=== PATIENT | male | born 1940 | race Caucasian/White ===

== ENCOUNTER 2023-07-16 12:04 | Emergency (ER) | payer MEDICARE, BC, SELFPAY ==
[2023-07-16 12:06] VITALS: BP 141/69
--- NOTE | 2023-07-16 13:32 | ED.MUSCINJ ---
HPI-Injury
General
Chief Complaint: Musculo-Skeletal Complaint
Source: patient
Exam Limitations: none
Time Seen by Provider: 07/16/23 13:15
Nursing documentation reviewed up to this point in time: agreed with
Travel History
Have you had any contact with someone who has COVID-19?: No
Do you have any symptoms of coronavirus? Fever > 100 degrees, chills, cough, shortness of breath, sore throat, loss of taste or smell, muscle aches, or headache?: No
History of Present Illness-Injury
Is this injury a work related problem?: No
Is pt an associate of [facility]?: No
Initial Injury comments:
Patient to ED with complaint of right knee and ankle pain. No history of trauma. reports he has had pain for a while. Denies fever/chills, recent illness. Denies redness or swelling to joints. No other complaints.
Past History
Past History
ED Past Medical History: Arrthythmia (Atrial fibrillation), Cancer and HTN; Negative IDDM or NIDDM
ED Past Surgical History: Cardiac, Orthopedic and Other (Hernia repair)
Patient has exhibited threatening behavior?: No
PSI?: No
Social History
Tobacco: Former smoker (Cigars)
Alcohol: Occasional
Drug: None
Personal:
Living: with family
Employment: Retired
Family History
Family History: Other (Noncontributory)
Review of Systems
Review of Systems
Allergies reviewed?: Yes
All Other Systems: ROS reviewed and negative except as documented in HPI and ROS
Constitutional: Reports no symptoms
EENT: Reports no symptoms
Respiratory: Reports no symptoms
Cardiac: Reports no symptoms
ABD/GI: Reports no symptoms
Musculoskeletal: Reports joint pain (right knee and ankle pain)
Skin: Reports no symptoms
Neurological: Reports no symptoms
Psychiatric: Reports no symptoms
Musculoskeletal Injury Exam
Musculoskeletal Injury Exam
Right Knee:
Pain with Movement?: Moderate
Tender to palpation?: Moderate
Soft tissue swelling?: None
External deformity and angulation?: None
Joint effusion?: None
Contusion?: None
Hematoma-local bleeding into tissue?: None
Strain- Sprain- Tear (Connective tissue injury)?: None
Crepitus with movement?: No
Joint instability?: No
Malalignment/deformity?: No
Range of motion: Full
Distal skin color and temperature: normal-warm & good color
Capillary Refill: normal
Normal distal neurovascular exam?: Yes
Peripheral Pulses: posterior tibial (left): 3+, posterior tibial (right): 3+, dorsalis pedis (left): 3+ and dorsalis pedis (right): 3+
Right Lateral Ankle:
Pain with Movement?: Moderate
Tender to palpation?: Moderate
Soft tissue swelling?: None
External deformity and angulation?: None
Joint effusion?: None
Contusion?: None
Hematoma-local bleeding into tissue?: None
Strain- Sprain- Tear (Connective tissue injury)?: None
Crepitus with movement?: No
Joint instability?: No
Malalignment/deformity?: No
Range of motion: Full
Distal skin color and temperature: normal-warm & good color
Capillary Refill: normal
Normal distal neurovascular exam?: Yes
Phy Exam
General Physical Exam
General Presentation: well appearing and no apparent distress
General age: appears stated age
General Skin: warm and dry
General Habitus: normal
General Mental: alert
Musculoskeletal Exam
Musculoskeletal Exam: full ROM and neuro vasc intact
Skin Exam
Skin Exam: normal color, warm/dry and no rash
Psychiatric Exam
Psychiatric Exam: normal mood/affect
Injury Course
Orders/Labs/Results
Orders:
Orders
07/16/23 12:11
CR Ankle - Right Min 3 Views * Urgent
Comment:
Reason For Exam: pain
CR Knee- Right 4 Or More View* Urgent
Comment:
Reason For Exam: pain
*Radiology
Radiology exam reviewed: radiology read reviewed
*Pulse Oximetry
Patient hypoxic: no
*Critical Care Note
Total Time (30-74mins, 75-104mins- exclusive of procedures): Not Applicable
ED Attending Note
-
Portions of this chart may have been created with voice recognition software.� Occasional wrong word or��sound alike� substitutions may have occurred due to the inherent limitations of voice recognition software.
Discharge Plan
Departure
Patient Disposition: Home (Routine Discharge)
Date of Disposition: 07/16/23
Time of Disposition: 13:30
Patient with high blood pressure during this ER visit?: No
Condition: Good
Covid-19: Not Applicable
Discharge Problem:
Knee pain, Ankle pain
Instructions: Osteoarthritis (DC), Ibuprofen
Prescriptions:
No Action
furosemide 20 MG tablet
20 mg PO Q48H
metoprolol tartrate 50 MG tablet
50 mg PO DAILY@299,999
capsaicin 0.025 % cream
1 applic topical MOWEFR
Rx Instructions:
Apply to affected area
Xarelto 20 mg Tablet
20 mg PO DAILY@1000
omega 3-nsl-fie-fish oil [Fish Oil] 1,200 (144-216) mg Capsule
1 cap PO DAILY@0300
dofetilide 250 MCG capsule
250 mcg PO DAILY@0300,1000
aspirin 81 mg tablet,chewable
81 mg PO .TWICEWEEKLY
clopidogrel [Plavix] 75 mg tablet
75 mg PO DAILY Qty: 30 1RF
Referrals:
Tessa Walker, DO [Family Provider] -
Jw Roger MD [Active] - Next open appointment
Interventions
Interventions:
*Risk Screen - Suicide Last Done: 07/16/23 12:06
*Neglect/Abuse Screening Last Done: 07/16/23 12:06
*ED COVID-19 Vaccine History Last Done: 07/16/23 12:06
ED-Musculoskeletal Assessment Last Done: 07/16/23 12:39
== END 2023-07-16 13:45 | disposition home or self-care (01) ==
LOC: EMR 12:04
PROVIDERS: EMERGENCY PHYSICIAN Emergency Medicine; FAMILY PHYSICIAN Family Medicine
DX: M25.561 Pain in right knee (principal); M25.571 Pain in right ankle and joints of right foot; M19.071 Primary osteoarthritis, right ankle and foot; Z87.891 Personal history of nicotine dependence
CPT/HCPCS: 99283; 73564; 73610

== ENCOUNTER 2023-12-17 09:50 | Emergency (ER) | payer MEDICARE, BC, SELFPAY ==
[2023-12-17 09:53] VITALS: BP 141/79
--- NOTE | 2023-12-17 10:08 | ED.GENMED ---
History of Present Illness
General
Chief Complaint: Musculo-Skeletal Complaint
Source: patient and spouse
Exam Limitations: none
Time Seen by Provider: 12/17/23 09:59
Nursing documentation reviewed up to this point in time: agreed with
History of Present Illness
History of Present Illness:
83-year-old male past medical history of A-fib status post Watchman procedure not currently anticoagulated, presenting to the emergency department today with concerns of right-sided posterior neck discomfort over the past 3 days seem to wake up with
this 3 days ago. Denies any numbness weakness headache nausea vomiting chest pain or shortness of breath. Significant increased discomfort with range of motion mainly when turning his head to the right
Past History
Past History
ED Past Medical History: Arrthythmia (Atrial fibrillation), Cancer and HTN; Negative IDDM or NIDDM
ED Past Surgical History: Cardiac, Orthopedic and Other (Hernia repair)
Patient has exhibited threatening behavior?: No
PSI?: No
Social History
Tobacco: Former smoker (Cigars)
Alcohol: Occasional
Drug: None
Personal:
Living: with family
Employment: Retired
Family History
Family History: Other (Noncontributory)
Review of Systems
Review of Systems
Allergies reviewed?: Yes
All Other Systems: ROS reviewed and negative except as documented in HPI and ROS
Phy Exam
Physical Exam
Physical Exam:
GENERAL: Alert , in no apparent distress
EYE: pupils equal and reactive
NECK: Discomfort to the posterior trapezius in the cervical region significant increased discomfort with patient attempting to rotate his head to the right. Supple, no significant adenopathy.
ENT: o/p clr, mmm.
CARDIAC: Regular rate and rhythm .
LUNGS: Clear breath sounds bilaterally, no acute respiratory distress, no wheezes/rales/rhonchi
ABDOMEN: Soft, without focal tenderness, no r/g, no cvat
NEUROLOGICAL: Alert and oriented, no focal neuro deficits normal 5 out of 5 upper extremity strength normal sensation with palpating bilaterally normal finger-nose. Walking steady gait. With assistance of cane
SKIN: Warm and dry, skin intact.
MUSCULOSKELETAL: No edema, well perfused.
PSYCH: Normal and appropriate interaction.
Course
Orders/Labs/Results
Orders:
Orders
12/17/23 10:05
Acetaminophen [Tylenol] 650 mg PO NOW STA
Ketorolac [Toradol] 30 mg IM NOW STA
CR Cervical Spine 2 or 3 Vw Urgent
Comment:
Reason For Exam: neck pain,
Vital Signs
Initial and Last Documented VS:
Initial Vital Signs
Temp Pulse Resp BP Pulse Ox
98.9 F 69 18 141/79 96
12/17/23 09:53 12/17/23 09:53 12/17/23 09:53 12/17/23 09:53 12/17/23 09:53
Last Documented Vital Signs
Temp Pulse Resp BP Pulse Ox
98.9 F 69 18 141/79 96
12/17/23 09:53 12/17/23 09:53 12/17/23 09:53 12/17/23 09:53 12/17/23 09:53
MDM/Problems Addressed
MDM/Problems Addressed:
83-year-old male presenting to the emergency department today with concerns of right-sided posterior neck discomfort. Pain worse with movement. No additional associated symptoms no neurologic symptoms chest pain shortness of breath headache. Here
patient with normal neurologic evaluation of the upper extremities and HEENT exam. Reproducible with movement and palpation making muscular injury most likely. X-ray with arthritis but no emergent findings. Otherwise patient appear stable for
discharge and return precautions given.
*Critical Care Note
Total Time (30-74mins, 75-104mins- exclusive of procedures): Not Applicable
ED Attending Note
-
Portions of this chart may have been created with voice recognition software.� Occasional wrong word or��sound alike� substitutions may have occurred due to the inherent limitations of voice recognition software.
Discharge Plan
Departure
Patient Disposition: Home (Routine Discharge)
Date of Disposition: 12/17/23
Time of Disposition: 11:39
Patient with high blood pressure during this ER visit?: No
Condition: Good
Covid-19: Not Applicable
Discharge Problem:
Neck muscle strain
Instructions: Muscle Strain (DC)
Prescriptions:
New
meloxicam 15 mg tablet
15 mg PO DAILY 5 Days Qty: 5 0RF
No Action
furosemide 20 MG tablet
20 mg PO Q48H
metoprolol tartrate 50 MG tablet
50 mg PO DAILY@0300,1000
capsaicin 0.025 % cream
1 applic topical MOWEFR
Rx Instructions:
Apply to affected area
Xarelto 20 mg Tablet
20 mg PO DAILY@1000
omega 1-fwb-nnr-fish oil [Fish Oil] 1,200 (144-216) mg Capsule
1 cap PO DAILY@0300
dofetilide 250 MCG capsule
250 mcg PO DAILY@0300,1000
aspirin 81 mg tablet,chewable
81 mg PO .TWICEWEEKLY
clopidogrel [Plavix] 75 mg tablet
75 mg PO DAILY Qty: 30 1RF
Referrals:
Tessa Walker DO [Family Provider] -
Activity Restrictions/Additional Instructions:
You came to the emergency department today with concerns of neck discomfort. This is most likely a muscle strain. Please rest and otherwise symptoms should hopefully improve over the next few days. Return to the emergency department for any
worsening, new or concerning symptoms.
Interventions
Interventions:
*Risk Screen - Suicide Last Done: 12/17/23 09:53
*General Assessment Last Done: 12/17/23 09:53
*Neglect/Abuse Screening Last Done: 12/17/23 09:53
ED-Musculoskeletal Assessment Last Done: 12/17/23 10:32
Discharge Date and Time
Print Language: HAITIAN
[2023-12-17] MEDS: TYLENOL 650 MG PO (10:32)
[2023-12-17] MEDS: TORADOL 30 MG IM (10:32)
== END 2023-12-17 11:47 | disposition home or self-care (01) ==
LOC: EMR 09:50
PROVIDERS: EMERGENCY PHYSICIAN Student in an Organized Health Care Education/Training Program; FAMILY PHYSICIAN Family Medicine
DX: S16.1XXA Strain of muscle, fascia and tendon at neck level, initial encounter (principal); X58.XXXA Exposure to other specified factors, initial encounter; I48.91 Unspecified atrial fibrillation; Z87.891 Personal history of nicotine dependence
CPT/HCPCS: 99284; 96372; 72040

== ENCOUNTER 2024-06-23 13:47 | Emergency (ER) | payer MEDICARE, SELFPAY ==
[2024-06-23] VITALS (25 sets, daily range): BP systolic 76–121; BP diastolic 49–75; BMI 30.2
[2024-06-23 14:21] LABS: % Basophils 0.1 % (0-2); % Eosinophils 0.7 % (0-6); % Immature Granulocytes 0.4 % (0-0.5); % Lymphocytes 3.1 % (20.5-51.1); % Monocytes 6.8 % (1.7-9.3); % Neutrophils 88.9 % (42.2-75.2); Absolute Eosinophils 0.1 10^3/uL (0-0.7); Absolute Lymphocytes 0.3 10^3/uL (1.2-3.4); Absolute Monocytes 0.6 10^3/uL (0.1-0.6); Absolute Neutrophils 7.4 10^3/uL (1.4-6.5); Hematocrit 48.2 % (39.0-52.0); Hemoglobin 15.7 g/dL (13.0-18.0); Mean Corp Hgb Conc. 32.6 g/dL (33.0-37.0); Mean Corpuscular Hgb 31.7 pg (27.0-31.0); Mean Corpuscular Volume 97.2 fL (80.0-94.0); Mean Platelet Volume 9.8 fL (7.4-10.4); Nucleated Red Blood Cells % 0 % (-); Platelet Count 245 10^3/uL (130-400); Red Blood Cell Count 4.96 10^6/uL (4.70-6.10); Red Cell Dist. Width 13.9 % (11.5-14.5); White Blood Cell Count 8.3 10^3/uL (4.8-10.8)
[2024-06-23 14:28] LABS: ALT (SGPT) 16 U/L (0-50); AST (SGOT) 21 U/L (17-59); Albumin 3.9 g/dl (3.5-5.0); Alkaline Phosphatase 54 U/L (38-126); Blood Urea Nitrogen 17 mg/dl (9-20); Calcium 8.6 mg/dl (8.4-10.2); Carbon Dioxide 27 mmol/L (22-30); Chloride 101 mmol/L (98-107); Glucose 104 mg/dl (70-99); Sodium 136 mmol/L (135-145); Total Bilirubin 0.7 mg/dl (0.2-1.3); Total Protein 6.7 g/dl (6.3-8.2); eGFR > 60.00
[2024-06-23 14:38] LABS: Troponin I 0.032 ng/ml
--- NOTE | 2024-06-23 16:06 | ED.GENMED ---
History of Present Illness
<Mela Cobb FLASK MAKER - Last Filed: 06/26/24 17:14>
General
Chief Complaint: Breathing Problem
Source: patient
Exam Limitations: none
Time Seen by Provider: 06/23/24 15:57
Nursing documentation reviewed up to this point in time: agreed with
History of Present Illness
History of Present Illness:
84-year-old male with history of A-fib on aspirin post Watchman procedure 01/2023, HTN presents for 2 days of feeling fatigued, having heart palpitations and dyspnea on exertion. He denies chest pain. He denies abdominal pain.
Past History
<Mela Cobb, FLASK MAKER - Last Filed: 06/26/24 17:14>
Past History
ED Past Medical History: Arrthythmia (Atrial fibrillation), Cancer and HTN; Negative IDDM or NIDDM
ED Past Surgical History: Cardiac, Orthopedic and Other (Hernia repair)
Patient has exhibited threatening behavior?: No
PSI?: No
Social History
Tobacco: Former smoker (Cigars)
Alcohol: Occasional
Drug: None
Personal:
Living: with family
Employment: Retired
Family History
Family History: Other (Noncontributory)
Review of Systems
<Mela Cobb, FLASK MAKER - Last Filed: 06/26/24 17:14>
Review of Systems
Allergies reviewed?: Yes
All Other Systems: ROS reviewed and negative except as documented in HPI and ROS
Constitutional: Reports fatigue; Denies fever
EENT: Denies sore throat
Respiratory: Reports trouble breathing (THOMAS past 2 days); Denies cough
Cardiac: Reports palpitations; Denies chest pain, diaphoresis or syncope
ABD/GI: Denies abdominal pain, nausea, vomiting or diarrhea
: Denies dysuria or difficulty voiding
Musculoskeletal: Reports no symptoms
Skin: Reports no symptoms
Neurological: Reports no symptoms
Phy Exam
<Mela Cobb, FLASK MAKER - Last Filed: 06/26/24 17:14>
Physical Exam
Physical Exam:
GENERAL: No acute distress. A&Ox3.
CONSTITUTIONAL: Afebrile.
EYES: clear, conjunctivae normal
ENMT: moist mucus membranes, Pharynx nl
RESPIRATORY: Regular respirations, nonlabored, lungs clear.
CARDIOVASCULAR: Tachycardic, monitor showing 160's-170's. Afib w RVR.
GI: Soft, nontender, normal BS
MUSCULOSKELETAL: Moves with ease. Well perfused. No edema
SKIN: Warm, dry, pink
PSYCH: Normal mood and affect. Well kept, interactive and appropriate
NEUROLOGIC: Awake, alert and oriented. No focal neurological deficits
Scores
<Mela Cobb, FLASK MAKER - Last Filed: 06/26/24 17:14>
Heart Failure Risk
Heart Failure Risk Score: Not Applicable
Course
<Mela Robertson. Jordyn, FLASK [employer]KER - Last Filed: 06/26/24 17:14>
Orders/Labs/Results
Orders:
Orders
06/23/24 13:52
Electrocardiogram (*1) Urgent
Reason for Study: Shortness of Breath
EKG- Treatment ONCE
06/23/24 14:06
Complete Blood Count/With Diff Urgent
Comprehensive Metabolic Panel Urgent
Troponin I Urgent
06/23/24 16:17
COVID-19 Antigen Urgent
Source: Nasal Swab
Influenza A+B Rapid Molecular Urgent
DANETTE Source: Nasal Swab
Specimen Description:
06/23/24 16:29
Propofol [Diprivan] 20 ml .ROUTE .STK-MED
06/23/24 17:05
Electrocardiogram (*1) Urgent
Reason for Study: Atrial Fibrillation
06/23/24 17:06
EKG- Treatment ONCE
06/23/24 17:40
CR Chest Portable - 1 View Urgent
Comment:
Reason For Exam: Afib w RVr
Reason Study Needs to be Portable: Patient Unstable
Abnormal Lab Results
06/23/24
14:06
MCV 97.2 H fL
(80.0-94.0)
MCH 31.7 H pg
(27.0-31.0)
MCHC 32.6 L g/dL
(33.0-37.0)
Absolute Neuts (auto) 7.4 H 10^3/uL
(1.4-6.5)
Absolute Lymphs (auto) 0.3 L 10^3/uL
(1.2-3.4)
Neutrophils % 88.9 H %
(42.2-75.2)
Lymphocytes % 3.1 L %
(20.5-51.1)
Glucose 104 H mg/dl
(70-99)
06/23/24 14:06
06/23/24 14:06
Vital Signs
Initial and Last Documented VS:
Initial Vital Signs
Temp Pulse Resp BP Pulse Ox
98.4 F 67 16 121/75 96
06/23/24 13:52 06/23/24 13:52 06/23/24 13:52 06/23/24 13:52 06/23/24 13:52
Last Documented Vital Signs
Temp Pulse Resp BP Pulse Ox
100.1 F 88 20 86/53 94
06/23/24 19:53 06/23/24 19:53 06/23/24 19:53 06/23/24 19:53 06/23/24 19:53
<Tejas Downs MD - Last Filed: 06/23/24 17:14>
Orders/Labs/Results
Orders:
Orders
06/23/24 13:52
Electrocardiogram (*1) Urgent
Reason for Study: Shortness of Breath
EKG- Treatment ONCE
06/23/24 14:06
Complete Blood Count/With Diff Urgent
Comprehensive Metabolic Panel Urgent
Troponin I Urgent
06/23/24 16:17
COVID-19 Antigen Urgent
Source: Nasal Swab
Influenza A+B Rapid Molecular Urgent
DANETTE Source: Nasal Swab
Specimen Description:
06/23/24 16:29
Propofol [Diprivan] 20 ml .ROUTE .STK-MED
06/23/24 17:05
Electrocardiogram (*1) Urgent
Reason for Study: Atrial Fibrillation
06/23/24 17:06
EKG- Treatment ONCE
06/23/24 17:40
CR Chest Portable - 1 View Urgent
Comment:
Reason For Exam: Afib w RVr
Reason Study Needs to be Portable: Patient Unstable
Abnormal Lab Results
06/23/24
14:06
MCV 97.2 H fL
(80.0-94.0)
MCH 31.7 H pg
(27.0-31.0)
MCHC 32.6 L g/dL
(33.0-37.0)
Absolute Neuts (auto) 7.4 H 10^3/uL
(1.4-6.5)
Absolute Lymphs (auto) 0.3 L 10^3/uL
(1.2-3.4)
Neutrophils % 88.9 H %
(42.2-75.2)
Lymphocytes % 3.1 L %
(20.5-51.1)
Glucose 104 H mg/dl
(70-99)
06/23/24 14:06
06/23/24 14:06
Vital Signs
Initial and Last Documented VS:
Initial Vital Signs
Temp Pulse Resp BP Pulse Ox
98.4 F 67 16 121/75 96
06/23/24 13:52 06/23/24 13:52 06/23/24 13:52 06/23/24 13:52 06/23/24 13:52
Last Documented Vital Signs
Temp Pulse Resp BP Pulse Ox
100.1 F 88 20 86/53 94
06/23/24 19:53 06/23/24 19:53 06/23/24 19:53 06/23/24 19:53 06/23/24 19:53
Procedures
<Tejas Downs MD - Last Filed: 06/23/24 17:14>
Cardioversion
Indication:: Afib
Performed by:: Tejas Downs MD; ALBERTA Armas
Synchronized?: Yes
Energy Used: 200 joules
Number of attempts: 1
Successful?: Yes
ASA Risk Score: Class III
Any reaction or bad outcome to prior sedation/anesthesia?: No history of a reaction
Sedation level to be attained: moderate
Chart and allergies reviewed: Yes
Patient reassessed prior to sedation: Yes
Time out completed at (validating right patient & procedure): 17:05
History of difficult intubation: No
Airway free of obstruction: Yes
Patient has a gag reflex: Yes
Patient is able to open mouth: Yes
Patient has no dentures: Yes
Patient has no loose teeth: Yes
Medication administered by Provider during Moderate Sedation: IV Propofol (mg)
Total dose administered: 40
Time drug administered: 17:05
Start Time: 17:05
Stop Time: 17:15
<Mela Cobb NP - Last Filed: 06/26/24 17:14>
MDM/Problems Addressed
Differential Diagnosis Includes:
Afbi w RVR
MDM/Problems Addressed:
84-year-old male with history of A-fib on aspirin post Watchman procedure 01/2023, HTN presents for 2 days of feeling fatigued, having heart palpitations and dyspnea on exertion. He denies chest pain. He denies abdominal pain.
Afebrile, NAD, heart rate 68 on arrival and went up to the 140s to 170s a past 10 minutes
4:05 p.m.
BP systolic in the 80s, patient alert, pleasant, NAD, he states he can feel the palpitations. HR 170's
Case discussed with Dr. Downs who will assist with cardioversion
CBC with no clinically significant abnormality
CMP normal
Troponin 0.032
Pt has Watchman, is on ASA [address] Mariano pupil personnel worker Inside Account Representative for [facility] re: cardioverting. He consulted Dr. Lynn and gave the go ahead for Cardioversion
6:00 p.m.
Pt alert, drinking. Monitor remains NSR
CXR: NAD
7:00 p.m.
Pt alert, NSR, drinking, stable for discharge
Chronic conditions affecting care: HTN and Arrhythmia
<Mela Cobb FL[employer]KER - Last Filed: 06/26/24 17:14>
*Critical Care Note
Total Time (30-74mins, 75-104mins- exclusive of procedures): Not Applicable
ED Attending Note
<Mela Cobb FL[employer]ER - Last Filed: 06/26/24 17:14>
-
Portions of this chart may have been created with voice recognition software.� Occasional wrong word or��sound alike� substitutions may have occurred due to the inherent limitations of voice recognition software.
<Tejas Downs MD - Last Filed: 06/23/24 17:14>
ED Attending Note
Patient seen and examined by attending physician: Yes
ED Attending Note:
I have seen and evaluated the patient with a [id number] encounter. I have spoken to the advance practicer provider and involved in the medical history, the physical exam, medical decision making.
Evaluation and management service: agree unless noted differently below.
Results interpretation: agree unless noted differently below.
Focused HPI: 84-year-old male with a past medical history as noted significant for A-fib status post Watchman procedure who presents to the ER with his for evaluation of palpitations, fatigue and shortness of breath. He says that he has had
intermittent symptoms for about a month but symptoms became more severe yesterday. He reports he feels very tired and wiped out especially when he exerts himself. He reports he has had palpitations. He had similar symptoms with A-fib in the past.
He sees Dr. Lacey for cardiology.
Physical exam: Awake alert no distress. Soft blood pressure 90s over 60s, tachycardic in the 150s irregularly irregular rhythm. Lungs sound clear to auscultation. No edema in the legs. Normal respiratory rate and pulse ox on room air.
Medical Decision Makin-year-old male presents for evaluation of tachycardia, palpitations, fatigue and shortness of breath. On arrival he was found to be in atrial fibrillation with rapid ventricular response. He has no signs of overt heart
failure. Labs sent off showed no anemia, CMP unremarkable. Troponin negative. He denies any chest pain. Case discussed with cardiology although he is not anticoagulation he has had Watchman procedure, okay with ED cardioversion. Discussed with
patient and he is agreeable to this procedure. He was cardioverted as documented in procedure note. Will continue to monitor here.
Discharge Plan
Departure
Patient Disposition: Home (Routine Discharge)
Date of Disposition: 06/23/24
Time of Disposition: 19:06
Patient with high blood pressure during this ER visit?: No
Condition: Good
Discharge Problem:
Atrial fibrillation with rapid ventricular response
Instructions: Atrial fibrillation - Discharge instructions, MODERATE SEDATION ADULT
Prescriptions:
No Action
furosemide 20 MG tablet
20 mg PO Q48H
metoprolol tartrate 50 MG tablet
50 mg PO DAILY@0300,1000
capsaicin 0.025 % cream
1 applic topical MOWEFR
Rx Instructions:
Apply to affected area
Xarelto 20 mg Tablet
20 mg PO DAILY@1000
omega 2-nby-ijg-fish oil [Fish Oil] 1,200 (144-216) mg Capsule
1 cap PO DAILY@0300
dofetilide 250 MCG capsule
250 mcg PO DAILY@0300,1000
aspirin 81 mg tablet,chewable
81 mg PO .TWICEWEEKLY
clopidogrel [Plavix] 75 mg tablet
75 mg PO DAILY Qty: 30 1RF
meloxicam 15 mg tablet
15 mg PO DAILY 5 Days Qty: 5 0RF
Referrals:
Frederick Lynn DO [Active] -
Jose Luis Lacey MD [Active] - Call in 1-3 days for appt
UNKNOWN - PT NOT,INTERVIEWE [Family Provider] -
Activity Restrictions/Additional Instructions:
As we discussed, call your Inside Account Representative on Wednesday and see when they want to see you for follow up.
Return here over the weekend if symptoms return or any thing concerns you.
Continue your current medications
Interventions
Interventions:
*Risk Screen - Suicide Last Done: 06/23/24 13:52
*General Assessment Last Done: 06/23/24 15:50
*Neglect/Abuse Screening Last Done: 06/23/24 13:52
ED- Fall Risk Assessment Last Done: 06/23/24 16:11
*ED COVID-19 Vaccine History Last Done: 06/23/24 16:12
*Nursing Disposition Last Done: 06/23/24 19:53
ED- Cardiac Assessment Last Done: 06/23/24 19:00
ED- Pulmonary Assessment Last Done: 06/23/24 18:59
Discharge Date and Time
Discharge Date/Time: 06/23/24 19:54
Print Language: EMIRATI
[2024-06-23 16:46] LABS: COVID-19 Antigen Negative (Negative)
== END 2024-06-23 19:54 | disposition home or self-care (01) ==
LOC: EMR 13:47
PROVIDERS: Registered Nurse; EMERGENCY PHYSICIAN Emergency Medicine
DX: R00.2 Palpitations (principal); I10 Essential (primary) hypertension; I48.91 Unspecified atrial fibrillation; Z87.891 Personal history of nicotine dependence
CPT/HCPCS: 92960; 99285; 99152; 71045; 80053; 84484; 85025; 87502; 87811; 93005

== ENCOUNTER 2024-06-28 14:09 | Inpatient (IN) | payer MEDICARE, SELFPAY ==
[2024-06-28] VITALS (15 sets, daily range): BP systolic 92–125; BP diastolic 58–85; BMI 30.8; BMI 29.6
[2024-06-28 10:35] LABS: % Basophils 0.3 % (0-2); % Eosinophils 1.4 % (0-6); % Immature Granulocytes 0.4 % (0-0.5); % Lymphocytes 23.1 % (20.5-51.1); % Monocytes 12.2 % (1.7-9.3); % Neutrophils 62.6 % (42.2-75.2); Absolute Eosinophils 0.1 10^3/uL (0-0.7); Absolute Lymphocytes 1.6 10^3/uL (1.2-3.4); Absolute Monocytes 0.9 10^3/uL (0.1-0.6); Absolute Neutrophils 4.3 10^3/uL (1.4-6.5); Hematocrit 45.8 % (39.0-52.0); Hemoglobin 15.3 g/dL (13.0-18.0); Mean Corp Hgb Conc. 33.4 g/dL (33.0-37.0); Mean Corpuscular Hgb 32.2 pg (27.0-31.0); Mean Corpuscular Volume 96.4 fL (80.0-94.0); Nucleated Red Blood Cells % 0 % (-); Platelet Count 255 10^3/uL (130-400); Red Blood Cell Count 4.75 10^6/uL (4.70-6.10); Red Cell Dist. Width 13.5 % (11.5-14.5); White Blood Cell Count 6.9 10^3/uL (4.8-10.8)
[2024-06-28 10:47] LABS: ALT (SGPT) 22 U/L (0-50); AST (SGOT) 23 U/L (17-59); Albumin 3.9 g/dl (3.5-5.0); Alkaline Phosphatase 52 U/L (38-126); Blood Urea Nitrogen 13 mg/dl (9-20); Calcium 9.2 mg/dl (8.4-10.2); Carbon Dioxide 27 mmol/L (22-30); Chloride 102 mmol/L (98-107); Estimated Creatinine Clearance 73 ml/min; Glucose 92 mg/dl (70-99); Sodium 137 mmol/L (135-145); Total Bilirubin 0.6 mg/dl (0.2-1.3); Total Protein 6.5 g/dl (6.3-8.2); eGFR > 60.00
--- NOTE | 2024-06-28 11:39 | ED.GENMED ---
History of Present Illness
General
Chief Complaint: Heart Rate Problem
Source: patient
Time Seen by Provider: 06/28/24 11:23
History of Present Illness
History of Present Illness:
84-year-old male presents to the emergency room complaining of rapid heart rate. He has a history of atrial fibrillation for which she has had multiple cardioversions, been on several medications and had a Watchman procedure. He was cleared to
stop anticoagulation after the Watchman procedure. Patient was seen here in the emergency room for similar symptoms about a week ago at which point he had a cardioversion. Unfortunately he is shortly reverted back to A-fib. Patient feels a bit
more short of breath when he is in A-fib but denies any chest pain.
Past History
Past History
ED Past Medical History: Arrthythmia (Atrial fibrillation), Cancer and HTN; Negative IDDM or NIDDM
ED Past Surgical History: Cardiac, Orthopedic and Other (Hernia repair)
Patient has exhibited threatening behavior?: No
PSI?: No
Social History
Tobacco: Former smoker (Cigars)
Alcohol: Occasional
Drug: None
Personal:
Living: with family
Employment: Retired
Family History
Family History: Other (Noncontributory)
Phy Exam
Physical Exam
Physical Exam:
General: Awake, Alert, Oriented X3. No acute distress.
Vitals: Tachycardic
Head: Atraumatic
Eyes: Pupils equal, EOMI
Throat: Airway intact, no exudates
Neck: Trachea midline
Lungs: Clear and equal b/l
Heart: Tachycardic, irregular rate, no murmurs
Abd: Soft, Nontender, No pulsatile mass
Neuro: Nonfocal
Skin: Warm, dry, no rash
Extremities: pulses equal b/l, 1+ edema
Course
Orders/Labs/Results
Orders:
Orders
06/28/24 10:01
Electrocardiogram (*1) Urgent
Reason for Study: Atrial Fibrillation
EKG- Treatment ONCE
06/28/24 10:11
Complete Blood Count/With Diff Urgent
Comprehensive Metabolic Panel Urgent
06/28/24 11:38
Diltiazem 125 mg/125 ml Nss [Cardizem] 125 mg in 125 ml IV NOW
Initial dose in mg/hr, then titrate:: 5
Titrate to keep:: Heart rate 80-100 bpm
Titrate by mg/hr:: 5 mg/hr
Frequency of titrations (minutes):: 15
Maximum dose in mg/hr:: 15
Diltiazem HCl [Cardizem] 20 mg IV NOW STA
06/28/24 12:40
Admit/Transfer Patient As Directed
Co-Sign Provider:
Level of Care: Inpatient admission
Assign to:: Telemetry
Physician / Group: gunjan
Diagnosis: afib rvr
Reason for Telemetry: Arrhythmia
Date to Stop Telemetry: 07/01/24
Time to Stop Telemetry: 11:00
Reason for Hospitalization: shortness of breath
Expected length of stay greater than two midnights?: Yes
ELOS- Estimated Length of Stay in days: 2
I certify the patient meets the requirements for IP care: Yes
PRN Pain Medication Management As Directed
May give lesser potent ordered pain med per pt: Yes
preference::
Protocol:: Medication orders for pain may be administered in a
manner that supports deferring to patient preference
when the pt is:
- Requesting an ordered lesser potent pain medication.
Least to most potent pain medications are defined
as: acetaminophen < NSAID < tramadol < opioids
(morphine, oxycodone, hydromorphone).
- Requesting a lesser dose of the same medication IF
ORDERED.
- Requesting a less intrusive route of administration
if both routes are prescribed by the provider (PO <
IV).
06/28/24 12:41
Code Status As Directed
Resuscitation Status: Full Code
07/01/24 11:00
DC Protocol for Telemetry ONCE
Abnormal Lab Results
06/28/24
10:11
MCV 96.4 H fL
(80.0-94.0)
MCH 32.2 H pg
(27.0-31.0)
Absolute Monos (auto) 0.9 H 10^3/uL
(0.1-0.6)
Monocytes % 12.2 H %
(1.7-9.3)
06/28/24 10:11
06/28/24 10:11
Vital Signs
Initial and Last Documented VS:
Initial Vital Signs
Temp Pulse Resp BP Pulse Ox
98.4 F 108 18 111/81 99
06/28/24 09:58 06/28/24 09:58 06/28/24 09:58 06/28/24 09:58 06/28/24 09:58
Last Documented Vital Signs
Temp Pulse Resp BP Pulse Ox
98.4 F 71 20 117/75 95
06/28/24 09:58 06/28/24 15:00 06/28/24 15:00 06/28/24 15:00 06/28/24 15:00
MDM/Problems Addressed
Differential Diagnosis Includes:
Atrial fibrillation with RVR, a flutter with RVR, SVT, anemia
MDM/Problems Addressed:
Patient presents with tachycardia. EKG shows a flutter with a rapid ventricular response. Reviewed the patient's recent hospitalizations and ER visits show he had a cardioversion performed just about a week ago. He is obviously not maintaining
sinus rhythm for very long. He has had other cardioversions in the past as well as antiarrhythmic medications. Cardiology consultation obtained. Patient's rate was controlled with IV Cardizem. After cardiology evaluation the plan was to
hospitalize the patient for amiodarone loading.
Chronic conditions affecting care: HTN and Arrhythmia (Atrial fibrillation)
*Pulse Oximetry
Patient hypoxic: no
*EKG
Interpreted by ED Provider?: Yes
Heart Rate: 120
Rate: tachycardiac
Rhythm: atrial flutter
Ischemia: no ischemia
*Aeronautical Products Sales Engineer Interpretation
Rate: tachycardiac
Interpretation: abnormal
Heart Rate: 120
Rhythm: atrial flutter
*Critical Care Note
Total Time (30-74mins, 75-104mins- exclusive of procedures): Not Applicable
ED Attending Note
-
Portions of this chart may have been created with voice recognition software.� Occasional wrong word or��sound alike� substitutions may have occurred due to the inherent limitations of voice recognition software.
Discharge Plan
Departure
Patient Disposition: Admit
Date of Disposition: 06/28/24
Time of Disposition: 12:05
Admit to: Telemetry
Presentation/result/management discussed w/ accepting MD/DO: Hospitalist
Condition: Fair
Discharge Problem:
Atrial flutter with rapid ventricular response
Interventions
Interventions:
*Risk Screen - Suicide Last Done: 06/28/24 09:58
*General Assessment Last Done: 06/28/24 09:58
*Neglect/Abuse Screening Last Done: 06/28/24 09:58
ED- Fall Risk Assessment Last Done: 06/28/24 10:46
*ED COVID-19 Vaccine History Last Done: 06/28/24 10:46
*Nursing Disposition Last Done: 06/28/24 15:17
ED- Cardiac Assessment Last Done: 06/28/24 10:46
ED- Pulmonary Assessment Last Done: 06/28/24 10:46
[2024-06-28] MEDS: CARDIZEM 125 IV (11:45)
[2024-06-28] MEDS: CARDIZEM 20 MG IV (11:45)
--- NOTE | 2024-06-28 12:01 | CON.CAR ---
Addendum entered and electronically signed by Ranjith Lynn MD 06/28/24 13:06:
I saw and examined the patient.
The Blueprint Clerk's note was reviewed and I agree with the note.
Comment:
GEN: No distress, awake, Ox3
HEENT: supple, anicteric, mmm
LUNGS: CTA, no wheezes/rales
CV: Irreg, S1/S2, 1/6 syst LSB, no gallop
ABD: soft, BS+, NT/ND
EXT: No edema
NEURO: Gross non-focal
SKIN: No rash
plan:
Has a past medical history of paroxysmal atrial fibrillation/flutter, PVI in 2017 and atrial flutter ablation 2018, Watchman February 22, and left calf hematoma. His Tikosyn was stopped. On June 23, 2024 he was found to be in atrial fibs
requiring cardioversion. Several days later he started having more palpitations and feeling dyspneic on exertion was found to have A-fib with rapid ventricular rate upon arrival in the emergency room. He also had a Mohs procedure yesterday on his
left face.
Case discussed with electrophysiology. Plan will be to start amiodarone 400 mg p.o. 3 times daily and follow on telemetry for the next 24 hours.
Would wean Cardizem drip after amiodarone dosing x 2.
Continue aspirin alone with history of watchman and thigh hematoma.
Once Cardizem drip is off would restart oral metoprolol. Blood pressure is overall acceptable. Continue to follow.
No clear signs of volume overload.
Original Note:
Consultation
Consultation Request
Date/Time Consultation Performed: 06/28/24
Requesting Provider: Dr. Phillips
Performing Provider: Jaqui Potts PA-C for Dr. Lynn
Reason for Consultation: afib/aflutter
Medical History
-
Chief Complaint: elevated HR
History of Present Illness:
Rob has a history of atrial fibrillation and atypical atrial flutter status post PVI and separate aflutter ablation. He has history of L calf hematoma on xarelto 10/2022, ultimately resulting in Watchman placement 01/2023 and is maintained on asa
81mg daily. He then underwent structural drafter 04/2024 which showed sinus rhythm 55% of the time and the rest of the time in A-fib/a flutter with several runs of NSVT. His Lopressor dose was increased from 50 mg twice daily to 50 mg 3 times daily.
At some point after monitor in 04/2024 his tikosyn was stopped per patient. On 06/23/2024 he noted heart rate was elevated and came to ER for evaluation. He was cardioverted in the ER and discharged to home. His believes he went back into
A-fib either this past Wednesday or Wednesday. They came back to the ER today due to patient complaining of feeling out of breath and that his heart was pounding. On arrival in rapid A-fib. Cardiology consulted for evaluation. Of note he had Mohs
surgery yesterday and has a bandage on his face.
PMH:
Paroxysmal atrial fibrillation and atrial flutter
Status post PVI 2017
Status post a flutter ablation 2018
History of QT prolongation on Tikosyn
ER visit for rapid A-fib status post cardioversion 06/23/2024
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
Status post watchman placement 01/2023, not anticoagulated
HTN
Past Medical History
Past Medical History: Arrhythmias (Atrial fibrillation) and HTN
Past Surgical History: Other (Hernia repair, left hip replacement, trigger finger surgery, carpal tunnel surgery, cataracts, PVI ablation in 2018 and 2019, Mohs surgery, lumbar spine injections)
Social History
Tobacco: Non-Smoker
Alcohol: Occasional
Drug: None
Personal:
Living: With Family
Employment: Retired
Family History
Family History: Other (Mother of unknown heart complication, father )
Allergies / Home Medications
Allergy/AdvReac Type Severity Reaction Status Date / Time
No Known Allergies Allergy Verified 06/28/24 09:57
�Medication �Instructions �Recorded �Confirmed �Type
furosemide 20 mg tablet 20 mg PO Q48H Fluid 09/10/19 03/19/23 History
retention/Swelling
metoprolol tartrate 50 mg tablet 50 mg PO DAILY@0300,1000 Heart 03/31/21 03/19/23 History
disease/condition
capsaicin 0.025 % topical cream 1 applic topical MOWEFR Skin Issues 01/20/23 03/19/23 History
rivaroxaban 20 mg tablet (Xarelto) 20 mg PO DAILY@1000 Blood Clot 01/25/23 03/19/23 History
Prevention/Tx
aspirin 81 mg chewable tablet 81 mg PO .TWICEWEEKLY 03/19/23 03/19/23 History
clopidogrel 75 mg tablet (Plavix) 75 mg PO DAILY #30 tabs 03/19/23 Rx
dofetilide 250 mcg capsule 250 mcg PO DAILY@0300,1000 03/19/23 03/19/23 History
Arrhythmia
omega 2-unq-xsg-fish oil 1,200 mg 1 cap PO DAILY@0300 03/19/23 03/19/23 History
(144 mg-216 mg) capsule (Fish Oil)
meloxicam 15 mg tablet 15 mg PO DAILY 5 days #5 tabs 12/17/23 Rx
Review of Systems
-
History Source: Patient and Family
All other systems: Negative unless noted
Physical Exam
Vital Signs
Temp Pulse Resp BP Pulse Ox
98.4 F 112 17 110/85 96
06/28/24 09:58 06/28/24 11:45 06/28/24 11:30 06/28/24 11:45 06/28/24 11:30
Lab Results
06/28/24 10:11
06/28/24 10:11
Physical Exam
General: No Apparent Distress and Comfortable
HEENT: Normocephalic, Anicteric, Moist Mucous Membranes and Other (L facial bandage)
Respiratory: Clear and Non Labored Respirations
Cardiac: S1/S2 and Irregular Rhythm
GI: Soft, Non Tender, Non Distended and Normal Bowel Sounds
Musculoskeletal: No Clubbing, No Cyanosis and No Edema
Skin: Warm and Dry
Neuro: Awake, Alert and AO x 3
Impression / Plan
-
Primary Donor Relations Coordinator: Dr. Lacey
Assessment:
Presentation with rapid heart rate, THOMAS
Paroxysmal atrial fibrillation and atrial flutter, now with RVR
Status post PVI
Status post a flutter ablation
History of QT prolongation on Tikosyn
ER visit for rapid A-fib status post cardioversion 06/23/2024
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
Status post watchman placement 01/2023, not anticoagulated
HTN
PEPE 02/02/2023: EF 55%, moderately dilated LA, #27 watchman flex placed without complication, no significant leak noted postprocedure
PEPE 03/19/2023: Well-seated 27 mm watchman flex left atrial appendage occluder device with no evidence of flow around device into left atrial appendage, no thrombus seen on face of device
Plan:
-Patient with history of A-fib and a flutter status post PVI in 2018 and a flutter ablation in 2019, status post Watchman 01/2023, previously on Tikosyn, presented to ER 06/2020 with A-fib and underwent cardioversion which was successful. Patient
and report he then recurred within 72 hours of cardioversion. He presents back to the ER today with heart pounding and feeling out of breath particularly with exertion and is noted to be back in a fib with RVR resulting in cardiology
consultation
-Prior records reviewed in great detail
-Started on IV Cardizem at 5 in ER with improvement in heart rate
-Will plan to initiate amiodarone 400 mg 3 times daily. QTc by EKG 491 ms
-For now we will continue Lopressor 50 mg 3 times daily, however suspect will lower dosing as loaded with amio
-Not anticoagulation candidate due to history of left calf hematoma and prior watchman. Maintained on aspirin. post watchman PEPE without evidence of leak as above
-Does not appear to be in acute heart failure. Chest x-ray 06/23 without evidence for acute pulmonary edema or pleural effusions. Follow volume status is on p.o. Lasix 20 mg every other day as an outpatient
-Consider for cardioversion prior to discharge versus as outpatient
-Discussed with ER physician. Discussed with primary conveyor feeder offbearer
Data Reviewed
-
EKG: Tracing Personally Visualized and interpreted
Radiology: Report Reviewed by me
Medical Tests (Nuc Med, Echo etc): Report Reviewed by me
Labs: Labs Reviewed by me
Old Records: Reviewed
--- NOTE | 2024-06-28 12:46 | HPS.HSE ---
Addendum entered and electronically signed by Jose Ramon Flores MD 06/28/24 12:55:
Patient taking furosemide 20 mg 2-3 times per week. To be continued.
Original Note:
Family Physician
-
Family Physician: Tessa Walker
Chief Complaint
-
shortness of breath
History of Present Illness
84-year-old male past medical history of atrial fibrillation status post PVI x 2 in 2018 with multiple cardioversions, Watchman, spontaneous left calf hematoma in 2022, hypertension, hyperlipidemia, GERD, degenerative disc disease, presenting with
rapid heart rate and shortness of breath for the past 2 to 3 days. He denies any chest pain. Denies any lower extremity swelling. Denies any weight gain. Denies any fevers or chills or symptoms of infection. He denies any dizziness or passing
out.
Metoprolol was increased from twice daily to 3 times daily 6 months ago. He has been compliant with dofetilide.
Patient was seen in the emergency room last week for atrial fibrillation and underwent cardioversion.
Patient recently underwent Mohs surgery for skin cancer of his left cheek.
He drinks alcohol occasionally. He smokes occasionally.
Medical History
Past Medical History
Past Medical History: Reports Other (atrial fibrillation status post PVI x 2 in 2018 with multiple cardioversions, Watchman, spontaneous left calf hematoma in 2022, hypertension, hyperlipidemia, GERD, degenerative disc disease)
Past Surgical History: Reports Other (watchmen)
Social History
Tobacco: Smoker
Alcohol: Occasional
Family History
Family History: Not pertinent
Allergies / Home Medications
Allergies reflects when Allergies were last updated in [employer].
Home Medications with original date entered in [employer]
Allergy/Medication List:
Allergies
Allergy/AdvReac Type Severity Reaction Status Date / Time
No Known Allergies Allergy Verified 06/28/24 09:57
Home Medications
furosemide 20 mg tablet 20 mg PO Q48H Fluid retention/Swelling 09/10/19
metoprolol tartrate 50 mg tablet 50 mg PO DAILY@0300,1000 Heart disease/condition 03/31/21
capsaicin 0.025 % topical cream 1 applic topical MOWEFR Skin Issues 01/20/23
rivaroxaban 20 mg tablet (Xarelto) 20 mg PO DAILY@1000 Blood Clot Prevention/Tx 01/25/23
aspirin 81 mg chewable tablet 81 mg PO .TWICEWEEKLY 03/19/23
clopidogrel 75 mg tablet (Plavix) 75 mg PO DAILY #30 tabs 03/19/23
dofetilide 250 mcg capsule 250 mcg PO DAILY@0300,1000 Arrhythmia 03/19/23
omega 1-wgv-uuk-fish oil 1,200 mg (144 mg-216 mg) capsule (Fish Oil) 1 cap PO DAILY@0300 03/19/23
meloxicam 15 mg tablet 15 mg PO DAILY 5 days #5 tabs 12/17/23
Review of Systems
-
History Source: Patient
A 12 point ROS was completed and negative except as noted: Yes
Constitutional: Reports No Symptoms
EENT: Reports No Symptoms
Respiratory: Reports No Symptoms
Cardiac: Reports No Symptoms
Abdomen/GI: Reports No Symptoms
: Reports No Symptoms
Musculoskeletal: Reports No Symptoms
Skin: Reports No Symptoms
Neurological: Reports No Symptoms
Endocrine: Reports No Symptoms
Hematologic/Lymphatic: Reports No Symptoms
Psych: Reports No Symptoms
Physical Exam
Vital Signs
Vital Signs
Temp Pulse Resp BP Pulse Ox
98.4 F 70 18 99/72 91
06/28/24 09:58 06/28/24 12:30 06/28/24 12:30 06/28/24 12:30 06/28/24 12:30
Physical Exam
General: Well Developed, Well Nourished and No Apparent Distress
HEENT: NormoCephalic, Moist mucous membranes and Atraumatic
Respiratory: Clear
Cardiac: S1/S2 and Regular Rhythm; No Murmur or Rub
GI: Soft, Non Tender, Non Distended and Normal Bowel Sounds; No Organomegaly
Rectal: Deferred by Provider
Musculoskeletal: No Clubbing, No Cyanosis and No Edema
Skin: No Rash
Neuro: Nonfocal/grossly intact
Laboratory Results
-
06/28/24 10:11
06/28/24 10:11
Laboratory Results
Total Bilirubin 0.6 mg/dl (0.2-1.3) 06/28/24 10:11
AST 23 U/L (17-59) 06/28/24 10:11
ALT 22 U/L (0-50) 06/28/24 10:11
Alkaline Phosphatase 52 U/L (38-126) 06/28/24 10:11
Data Reviewed
-
Lab Data: Labs Reviewed by me
Old Records: Reviewed
Impression/Plan
-
IMPRESSION:
PLAN:
# Recurrent atrial fibrillation with RVR
# Atrial fibrillation status post PVI x 2 in 2018, watchman, multiple cardioversions
-EKG shows atrial fibrillation with RVR heart rate of 120
-Check chest x-ray
-Cardizem drip
-Continue aspirin
-Continue Lopressor 50 mg 3 times daily
-Cardiology planning to switch dofetilide to amiodarone 400 mg 3 times daily
-Not in heart failure
History of spontaneous left calf hematoma in 2022
Essential hypertension
Hyperlipidemia
GERD
Degenerative disc disease
Skin cancer status post recent Mohs surgery
Full code
DVT prophylaxis�heparin
Regular diet
[2024-06-28] MEDS: LASIX 20 MG PO (16:18)
[2024-06-28] MEDS: PACERONE 400 MG PO ×2 (16:18→22:17)
[2024-06-28] MEDS: LOPRESSOR 50 MG PO (16:19)
--- NOTE | 2024-06-28 17:34 | PTCARENOTE ---
Pt. arrived to unit via stretcher and able to ambulate to bed without assistance. Pt. has Cardizem drip running at 5 mg/hr started by ED nurse. Pt. admitted and oriented to unit. Shortly after admission, pt tele alarming for a-fib with HR in 140s
and sustaining. Pt. asymptomatic in bed and MD updated. Cardizem drip rate increased to 7.5 mg/hr. Pt. still in a-fib rhythm, but HR is 65-75. Plan of care ongoing.
[2024-06-28] MEDS: HEPARIN 5000 UNITS SC (20:33)
[2024-06-28] MEDS: LOPRESSOR PO (22:18)
--- NOTE | 2024-06-29 02:45 | PTCARENOTE ---
late entry 2215- Pt HR 40's-70's pedro Diegog. IV Carol waters d/c'd per Nacho WHITMORE
[2024-06-29 03:55] VITALS: BP 111/88
[2024-06-29 06:00] VITALS: BMI 29.4
[2024-06-29 07:03] VITALS: BP 106/71
[2024-06-29 07:27] LABS: % Basophils 0.4 % (0-2); % Eosinophils 1.3 % (0-6); % Immature Granulocytes 0.5 % (0-0.5); % Lymphocytes 21.3 % (20.5-51.1); % Monocytes 9.1 % (1.7-9.3); % Neutrophils 67.4 % (42.2-75.2); Absolute Eosinophils 0.1 10^3/uL (0-0.7); Absolute Lymphocytes 1.6 10^3/uL (1.2-3.4); Absolute Monocytes 0.7 10^3/uL (0.1-0.6); Absolute Neutrophils 5.1 10^3/uL (1.4-6.5); Hematocrit 45.6 % (39.0-52.0); Hemoglobin 15.2 g/dL (13.0-18.0); Mean Corp Hgb Conc. 33.3 g/dL (33.0-37.0); Nucleated Red Blood Cells % 0 % (-); Platelet Count 262 10^3/uL (130-400); Red Blood Cell Count 4.75 10^6/uL (4.70-6.10); Red Cell Dist. Width 13.6 % (11.5-14.5); White Blood Cell Count 7.6 10^3/uL (4.8-10.8)
[2024-06-29] MEDS: PACERONE 400 MG PO ×3 (07:43→20:52)
[2024-06-29] MEDS: LOPRESSOR 50 MG PO ×3 (07:44→20:53)
[2024-06-29] MEDS: HEPARIN 5000 UNITS SC ×2 (07:45→20:53)
[2024-06-29] MEDS: LOW STRENGTH ASPIRIN 81 MG PO (07:45)
[2024-06-29] MEDS: CARDIZEM 125 IV ×2 (08:38→21:59)
--- NOTE | 2024-06-29 08:42 | PTCARENOTE ---
Pt HR in 130's this morning, AM medications given, still in 130's. MD notified and ordered to restart cardizem gtt at 5. Drip restarted, pt asymptomatic at this time.
--- NOTE | 2024-06-29 09:22 | W.PN.CARDCBS ---
Addendum entered and electronically signed by Kenya Perez DO 06/29/24 19:08:
I saw and examined the patient.
The Bus Company Manager's note was reviewed and I agree with the note.
Comment: Patient seen and examined. Overall he is feeling better and denies palpitations. He denies shortness of breath or chest pain.
GEN: NAD, room air. Awake alert and oriented x 3
HEENT: mmm. + bandage left cheek following outpatient Mohs procedure
LUNGS: CTA b/l, no wheezes/rales
CV: irregularly irregular, S1/S2, no murmur
EXT: No edema
Plan:
Paroxysmal atrial fibrillation/atrial flutter now in atrial fibrillation with rapid response
-Status post cardioversion 06/23/2024 and prior history of atrial fibrillation/atrial flutter ablations in 2017 and 2018
-Continue amiodarone load. Continue Lopressor. Continue IV Cardizem
-Check EKG in the morning and continue telemetry monitoring
-On aspirin alone given h/o watchman implant 01/2023.
-Consider for CV prior to discharge vs as OP. Eventually consider eval for repeat PVI.
-N.p.o. after midnight for possible additional cardioversion attempt tomorrow
Original Note:
Today's Communication / Plan
-
Agree w/ restarting cardizem gtt given elevated HRs this AM
Continue amiodarone loading w/ 400mg TID
Continue lopressor 50mg TID
Aspirin 81mg daily given h/o watchman
Impression / Plan
-
Primary Auto Bumper Mechanic: Dr. Lacey
Assessment:
Presented with rapid heart rate, THOMAS
Paroxysmal atrial fibrillation and atrial flutter, now with RVR
s/p PVI 2017
s/p a flutter ablation 2018
h/o QT prolongation on Tikosyn
ER visit for rapid A-fib s/p cardioversion 06/23/2024
h/o spontaneous left calf hematoma on Xarelto 10/2022
s/p watchman placement 01/2023, not anticoagulated
HTN
PEPE 02/02/2023: EF 55%, moderately dilated LA, #27 watchman flex placed without complication, no significant leak noted postprocedure
PEPE 03/19/2023: Well-seated 27 mm watchman flex left atrial appendage occluder device with no evidence of flow around device into left atrial appendage, no thrombus seen on face of device
Plan:
-Presented with THOMAS and rapid heart rate. Recently seen in [facility] 06/23/24 w/ Afib and was cardioverted, but recurred with afib within 72 hours. Admitted 06/28 w/ recurrent Afib w/ RVR and started on cardizem gtt.
-Also started on amiodarone 400mg TID this admission, 1.2 g load thus far after AM dose 06/29. QTc stable at 486 ms 06/29.
-HRs improved overnight and cardizem gtt was stopped, however in AM 06/29, HRs became rapid again into the 130s. Now back on cardizem gtt @ 10.
-Follow HRs and wean off cardizem gtt as able.
-Continue lopressor 50mg TID for now.
-On aspirin alone given h/o watchman implant 01/2023.
-Consider for CV prior to discharge vs as OP. Eventually consider eval for repeat PVI.
-Appears euvolemic currently on OP dose of lasix 20mg every other day. Continue to follow closely.
HPI: Rob has a history of atrial fibrillation and atypical atrial flutter status post PVI and separate aflutter ablation. He has history of L calf hematoma on xarelto 10/2022, ultimately resulting in Watchman placement 01/2023 and is maintained
on asa 81mg daily. He then underwent equipment monitor phototypesetting 04/2024 which showed sinus rhythm 55% of the time and the rest of the time in A-fib/a flutter with several runs of NSVT. His Lopressor dose was increased from 50 mg twice daily to 50 mg 3 times
daily. At some point after monitor in 04/2024 his tikosyn was stopped per patient. On 06/23/2024 he noted heart rate was elevated and came to ER for evaluation. He was cardioverted in the ER and discharged to home. His believes he went back
into A-fib either this past Wednesday or Wednesday. They came back to the ER today due to patient complaining of feeling out of breath and that his heart was pounding. On arrival in rapid A-fib. Cardiology consulted for evaluation. Of note he had Mohs
surgery yesterday and has a bandage on his face.
Progress Note - Auto Bumper Mechanic
Subjective
Date of Service: June 29, 2024
Feeling well. Notes no palpitations, SOB at rest, or chest discomfort w/ elevated HRs this AM.
Objective
Labs:
06/29/24 07:02
Labs
Hgb 15.2 g/dL (13.0-18.0) 06/29/24 07:02
Hct 45.6 % (39.0-52.0) 06/29/24 07:02
Plt Count 262 10^3/uL (130-400) 06/29/24 07:02
Sodium 137 mmol/L (135-145) 06/28/24 10:11
Potassium 5.0 mmol/L (3.5-5.1) 06/28/24 10:11
BUN 13 mg/dl (9-20) 06/28/24 10:11
Creatinine 0.8 mg/dL (0.7-1.3) 06/28/24 10:11
Glucose 92 mg/dl (70-99) 06/28/24 10:11
Vital Signs and I&O:
Vital Signs
Temp Pulse Resp BP Pulse Ox
98 F 137 24 120/81 95
06/29/24 07:03 06/29/24 07:43 06/29/24 07:03 06/29/24 07:43 06/29/24 07:03
Vital Signs
Temp Pulse Resp BP Pulse Ox
98 F 137 24 120/81 95
06/29/24 07:03 06/29/24 07:43 06/29/24 07:03 06/29/24 07:43 06/29/24 07:03
Intake & Output
06/27/24 06/28/24 06/29/24 06/30/24
06:59 06:59 06:59 06:59
Intake Total 1030 / 1030
Output Total 1100 / 1100
Balance -70 / -70
Physical Exam
Physical Exam
GEN: No distress, awake, alert, oriented x3
HEENT: supple, anicteric, mmm
LUNGS: CTA b/l, no wheezes/rales
CV: irregularly irregular, S1/S2, no murmur
EXT: No clubbing, cyanosis, or edema
NEURO: Gross non-focal
SKIN: Warm, dry, no rash
--- NOTE | 2024-06-29 10:00 | PTCARENOTE ---
Pt's HR still sustaining in 130's. MD at bedside, cardizem drip increased to 10. Pt asymptomatic.
[2024-06-29 10:13] LABS: ALT (SGPT) 21 U/L (0-50); AST (SGOT) 23 U/L (17-59); Albumin 3.8 g/dl (3.5-5.0); Alkaline Phosphatase 50 U/L (38-126); Blood Urea Nitrogen 14 mg/dl (9-20); Calcium 8.9 mg/dl (8.4-10.2); Carbon Dioxide 25 mmol/L (22-30); Chloride 101 mmol/L (98-107); Estimated Creatinine Clearance 73 ml/min; Glucose 91 mg/dl (70-99); Potassium 4.6 mmol/L (3.5-5.1); Sodium 136 mmol/L (135-145); Total Bilirubin 0.7 mg/dl (0.2-1.3); Total Protein 6.4 g/dl (6.3-8.2); eGFR > 60.00
[2024-06-29 11:03] VITALS: BP 104/68
--- NOTE | 2024-06-29 11:58 | W.PN.HOSP.TC ---
Today's Communication/Plan
-
Monitor vital signs see plan
Started back on Cardizem drip, currently at 10
Continue with metoprolol, amiodarone
Assessment / Plan
Assessment / Plan
General: Well Developed, Well Nourished and No Apparent Distress
HEENT: NormoCephalic, Moist mucous membranes and Atraumatic
Respiratory: Clear
Cardiac: S1/S2 and iregular Rhythm, tachycardia
GI: Soft, Non Tender, Non Distended and Normal Bowel Sounds
Musculoskeletal:No Edema
Neuro: Nonfocal/grossly intact
Recurrent atrial fibrillation with RVR
History of paroxysmal atrial fibrillation and atrial flutter
# Atrial fibrillation status post PVI x 2 in 2018, watchman, multiple cardioversions
-EKG shows atrial fibrillation with RVR heart rate of 120
Was initially placed on Cardizem drip however had some bradycardia episodes overnight so was stopped. This morning heart rate elevated to 130s. Started Cardizem drip, currently at 10
-Continue aspirin
-Continue Lopressor 50 mg 3 times daily
-Cardiology planning to switch dofetilide to amiodarone 400 mg 3 times daily, now on Amio
-Not in heart failure
History of hematoma on Xarelto
History of spontaneous left calf hematoma in 2022
Essential hypertension
Hyperlipidemia
GERD
Degenerative disc disease
Skin cancer status post recent Mohs surgery
wound care
Full code
DVT prophylaxis�heparin
I spent a total of 51 minutes with the patient or on the floor. More than 50% of this time involved counseling and coordination of care.
Anticipated Discharge: 24 - 48 hours
Subjective/Interval History
-
Date of Service: June 29, 2024
Denies chest pain
Objective Data
-
Labs:
Laboratory Results
06/29/24
07:02
WBC 7.6
Hgb 15.2
Hct 45.6
Plt Count 262
Sodium 136
Potassium 4.6
Chloride 101
Carbon Dioxide 25
BUN 14
Creatinine 0.7
Glucose 91
Calcium 8.9
Total Bilirubin 0.7
AST 23
ALT 21
Alkaline Phosphatase 50
Vital Signs:
Vital Signs
Temp Pulse Resp BP Pulse Ox
98.2 F 83 18 104/68 96
06/29/24 11:03 06/29/24 11:03 06/29/24 11:03 06/29/24 11:03 06/29/24 11:03
I&O
06/28/24 06/29/24 06/30/24
06:59 06:59 06:59
Intake Total 1030 / 1030
Output Total 1100 / 1100
Balance -70 / -70
--- NOTE | 2024-06-29 12:24 | WOUNDNOTE ---
WO RN note: Patient admitted with a fib. Patient lives with spouse.
See H&P for complete history.
PMH: a fib, PVI 2018,multiple cardioversions, Watchman, L calf hematoma 2022, HTN, DDD, recent Moh's procedure on 06/27/24.
Wound Location and type/assessment: Patient admitted with: Moh's incision with large amount of old sanguinous drainage, sutures and steri strips intact, skin red ecchymotic around incision. Incision about 6.5cm long. Bruises on hands.
Appetite: good.
Pressure redistribution devices in place: Advanta with Accumax. Patient is mobile.
Plan: t/c Spoke with vEy at [facility] in [place] [phone] who stated his post op dressing can be removed and to start Bactroban, Telfa, gauze dressing changes. Evy approved using Vaseline instead of Bactroban for the 1st dressing
change.
Will confirm orders with Dr. Craig and update nurse.
Care plan to be updated and will follow as needed. Patient stated he has a follow up appointment with radiophone operator on 07/04/24.
--- NOTE | 2024-06-29 12:48 | WOUNDNOTE ---
LEFT SIDE OF FACE(CHEEK)
--- NOTE | 2024-06-29 12:49 | WOUNDNOTE ---
LEFT SIDE OF FACE/CHEEK
--- NOTE | 2024-06-29 13:37 | CM ---
Met with patient to obtain information for assessment. Patient's was at bedside. Patient stated that he and his live in a single home with no steps. They live in a [place] and over community. Patient stated that he is independent with his ADLs,
personal care, dressing and bathing. 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 Both he and his drive and can transport to appointments and do their own shopping. He uses a walker and a cane. He has never had VN services. He has
not been to a SNF.
Patient has a prescription plan and uses, [facility] for all of his medications.
His PCP is, Tessa Walker.
Plan: Case management will continue to follow and assist with discharge planning. Patient would like to return home when he is medically cleared for discharge.
[2024-06-29 15:12] VITALS: BP 113/66
[2024-06-29 19:21] VITALS: BP 118/68
--- NOTE | 2024-06-29 22:00 | PTCARENOTE ---
Patient on Cardizem gtt at 10mg/hr heart rate sustaining in the 50's-60's. ALBERTA Shannon on unit. Cardizem gtt decreased to 5mg/hr. Will continue to monitor. Care ongoing.
[2024-06-29 23:50] VITALS: BP 106/55
[2024-06-30 03:45] VITALS: BP 101/65
[2024-06-30 06:00] VITALS: BMI 29.7
[2024-06-30 07:05] VITALS: BP 113/61
[2024-06-30 07:26] LABS: % Basophils 0.4 % (0-2); % Eosinophils 1.7 % (0-6); % Immature Granulocytes 0.5 % (0-0.5); % Lymphocytes 16.4 % (20.5-51.1); % Monocytes 10.2 % (1.7-9.3); % Neutrophils 70.8 % (42.2-75.2); Absolute Eosinophils 0.2 10^3/uL (0-0.7); Absolute Immature Granulocytes 0.1 10^3/uL (0-0.05); Absolute Lymphocytes 1.6 10^3/uL (1.2-3.4); Absolute Neutrophils 6.9 10^3/uL (1.4-6.5); Hematocrit 42.9 % (39.0-52.0); Hemoglobin 14.4 g/dL (13.0-18.0); Mean Corp Hgb Conc. 33.6 g/dL (33.0-37.0); Mean Corpuscular Hgb 32.1 pg (27.0-31.0); Mean Corpuscular Volume 95.5 fL (80.0-94.0); Mean Platelet Volume 10.1 fL (7.4-10.4); Nucleated Red Blood Cells % 0 % (-); Platelet Count 252 10^3/uL (130-400); Red Blood Cell Count 4.49 10^6/uL (4.70-6.10); Red Cell Dist. Width 13.7 % (11.5-14.5); White Blood Cell Count 9.8 10^3/uL (4.8-10.8)
[2024-06-30 07:56] LABS: Blood Urea Nitrogen 16 mg/dl (9-20); Calcium 8.9 mg/dl (8.4-10.2); Carbon Dioxide 30 mmol/L (22-30); Chloride 101 mmol/L (98-107); Estimated Creatinine Clearance 64 ml/min; Glucose 105 mg/dl (70-99); Potassium 4.9 mmol/L (3.5-5.1); Sodium 136 mmol/L (135-145); eGFR > 60.00
--- NOTE | 2024-06-30 08:13 | W.PN.CARDCBS ---
Addendum entered and electronically signed by Kenya Perez DO 06/30/24 15:08:
I saw and examined the patient.
The Upkeep Worker's note was reviewed and I agree with the note.
Comment: Patient was seen and examined. Overall he feels well and denies chest pain, shortness of breath or palpitations. No dizziness or lightheadedness.
GEN: NAD, room air. Awake alert and oriented x 3
HEENT: mmm. + bandage left cheek following outpatient Mohs procedure
LUNGS: CTA b/l, no wheezes/rales
CV: irregularly irregular, S1/S2, no murmur
EXT: No edema
Plan:
Paroxysmal atrial fibrillation/atrial flutter now in atrial fibrillation
-Status post cardioversion 06/23/2024 and prior history of atrial fibrillation/atrial flutter ablations in 2017 and 2018
-Heart rates better we will stop IV Cardizem
-As patient has no symptoms and rates are relatively controlled we will not proceed with repeat cardioversion at his time
-Discussed with nursing staff who will notify our service of heart rate trends off Cardizem as well as ambulate patient through halls to check ambulatory heart rates
-Continue amiodarone, reduce to 200 mg twice daily at time of discharge
-Continue Lopressor.
-On aspirin alone given h/o watchman implant 01/2023.
-Outpatient cardiac follow-up arranged with the EP to discuss long-term management including ablation.
If heart rates are stable off IV Cardizem, plan for discharge later today
Original Note:
Today's Communication / Plan
-
For CV this AM
Continue amiodarone 400mg TID while admitted
Decrease to 200mg BID at discharge
Continue aspirin alone given h/o watchman
Follow up arranged
Impression / Plan
-
Primary Information Officer: Dr. Lacey
Assessment:
Presented with rapid heart rate, THOMAS
Paroxysmal atrial fibrillation and atrial flutter, now with RVR
s/p PVI 2017
s/p a flutter ablation 2018
h/o QT prolongation on Tikosyn
ER visit for rapid A-fib s/p cardioversion 06/23/2024
h/o spontaneous left calf hematoma on Xarelto 10/2022
s/p watchman placement 01/2023, not anticoagulated
HTN
PEPE 02/02/2023: EF 55%, moderately dilated LA, #27 watchman flex placed without complication, no significant leak noted postprocedure
PEPE 03/19/2023: Well-seated 27 mm watchman flex left atrial appendage occluder device with no evidence of flow around device into left atrial appendage, no thrombus seen on face of device
Plan:
-Presented with THOMAS and rapid heart rate. Recently seen in [facility] 06/23/24 w/ Afib and was cardioverted, but recurred with afib within 72 hours. Admitted 06/28 w/ recurrent Afib w/ RVR and started on cardizem gtt.
-Also started on amiodarone 400mg TID this admission, 2.0 g load thus far after PM dose 06/29. QTc stable at 486 ms 06/29.
-HRs improved on cardizem gtt, but jump back into the 130s with stopping drip. Fairly well controlled on cardizem @5, but still w/ occasional jumps into 120s.
-On aspirin alone given h/o watchman implant 01/2023.
-Will plan for CV today, 06/30. Eventually consider eval for repeat PVI.
-Continue lopressor 50mg TID for now, will reassess HR after CV.
-Appears euvolemic currently on OP dose of lasix 20mg every other day. Continue to follow closely.
-Follow up arranged.
HPI: Rob has a history of atrial fibrillation and atypical atrial flutter status post PVI and separate aflutter ablation. He has history of L calf hematoma on xarelto 10/2022, ultimately resulting in Watchman placement 01/2023 and is maintained
on asa 81mg daily. He then underwent classroom monitor 04/2024 which showed sinus rhythm 55% of the time and the rest of the time in A-fib/a flutter with several runs of NSVT. His Lopressor dose was increased from 50 mg twice daily to 50 mg 3 times
daily. At some point after monitor in 04/2024 his tikosyn was stopped per patient. On 06/23/2024 he noted heart rate was elevated and came to ER for evaluation. He was cardioverted in the ER and discharged to home. His believes he went back
into A-fib either this past Wednesday or Wednesday. They came back to the ER today due to patient complaining of feeling out of breath and that his heart was pounding. On arrival in rapid A-fib. Cardiology consulted for evaluation. Of note he had Mohs
surgery yesterday and has a bandage on his face.
Progress Note - Information Officer
Subjective
Date of Service: June 30, 2024
Feels well this morning. No complaints.
Objective
Labs:
06/30/24 07:03
06/30/24 07:03
Labs
Hgb 14.4 g/dL (13.0-18.0) 06/30/24 07:03
Hct 42.9 % (39.0-52.0) 06/30/24 07:03
Plt Count 252 10^3/uL (130-400) 06/30/24 07:03
Sodium 136 mmol/L (135-145) 06/30/24 07:03
Potassium 4.9 mmol/L (3.5-5.1) 06/30/24 07:03
BUN 16 mg/dl (9-20) 06/30/24 07:03
Creatinine 0.8 mg/dL (0.7-1.3) 06/30/24 07:03
Glucose 105 mg/dl (70-99) H 06/30/24 07:03
Vital Signs and I&O:
Vital Signs
Temp Pulse Resp BP Pulse Ox
97.7 F 55 18 113/61 98
06/30/24 07:05 06/30/24 07:05 06/30/24 07:05 06/30/24 07:05 06/30/24 07:05
Vital Signs
Temp Pulse Resp BP Pulse Ox
97.7 F 55 18 113/61 98
06/30/24 07:05 06/30/24 07:05 06/30/24 07:05 06/30/24 07:05 06/30/24 07:05
Intake & Output
06/28/24 06/29/24 06/30/24 07/01/24
06:59 06:59 06:59 06:59
Intake Total 1030 / 1030 940 / 940
Output Total 1100 / 1100 1450 / 1450
Balance -70 / -70 -510 / -510
Physical Exam
Physical Exam
GEN: No distress, awake, alert, oriented x3
HEENT: supple, anicteric, mmm
LUNGS: CTA b/l, no wheezes/rales
CV: irregularly irregular, S1/S2, no murmur
EXT: No clubbing, cyanosis, or edema
NEURO: Gross non-focal
SKIN: Warm, dry, no rash
[2024-06-30] MEDS: LOW STRENGTH ASPIRIN 81 MG PO (08:22)
[2024-06-30] MEDS: LOPRESSOR 50 MG PO (08:22)
[2024-06-30] MEDS: PACERONE 400 MG PO (08:25)
[2024-06-30] MEDS: HEPARIN 5000 UNITS SC (08:25)
[2024-06-30] MEDS: BACTROBAN 2% OINTMENT 1 APPLIC TOPICAL (10:28)
[2024-06-30 10:54] VITALS: BP 112/70
--- NOTE | 2024-06-30 12:11 | W.PN.HOSP.TC ---
Addendum entered and electronically signed by Tyler Craig MD 06/30/24 12:36:
Discussed with cardiology, there is no plan for cardioversion today. Patient ambulated and heart rate remained stable. Per cardiology patient can be discharged. Will discharge patient on amiodarone and metoprolol.
Time of discharge 37 minutes
Original Note:
Today's Communication/Plan
-
Monitor vital signs see plan
Continue with amiodarone, metoprolol
Wean Cardizem drip
Cardioversion per cardiology
Assessment / Plan
Assessment / Plan
General: Well Developed, Well Nourished and No Apparent Distress
HEENT: NormoCephalic, Moist mucous membranes and Atraumatic
Respiratory: Clear
Cardiac: S1/S2 and iregular Rhythm, tachycardia
GI: Soft, Non Tender, Non Distended and Normal Bowel Sounds
Musculoskeletal:No Edema
Neuro: Nonfocal/grossly intact
Recurrent atrial fibrillation with RVR
History of paroxysmal atrial fibrillation and atrial flutter
# Atrial fibrillation status post PVI x 2 in 2018, watchman, multiple cardioversions
-EKG shows atrial fibrillation with RVR heart rate of 120
Continue with Cardizem gtt
-Continue aspirin
-Continue Lopressor 50 mg 3 times daily
-was on dofetilide; now switched to amiodarone 400 mg 3 times daily
-Not in heart failure
History of hematoma on Xarelto
Plan for cardioversion possibly 06/30 per cardiology
History of spontaneous left calf hematoma in 2022
Essential hypertension
Hyperlipidemia
GERD
Degenerative disc disease
Skin cancer status post recent Mohs surgery
wound care
Full code
DVT prophylaxis�heparin
I spent a total of 51 minutes with the patient or on the floor. More than 50% of this time involved counseling and coordination of care.
Anticipated Discharge: Within 24 hours
Subjective/Interval History
-
Date of Service: June 30, 2024
denies pain
Objective Data
-
Labs:
Laboratory Results
06/30/24
07:03
WBC 9.8
Hgb 14.4
Hct 42.9
Plt Count 252
Sodium 136
Potassium 4.9
Chloride 101
Carbon Dioxide 30
BUN 16
Creatinine 0.8
Glucose 105 H
Calcium 8.9
Vital Signs:
Vital Signs
Temp Pulse Resp BP Pulse Ox
98.4 F 70 18 112/70 96
06/30/24 10:54 06/30/24 10:54 06/30/24 10:54 06/30/24 10:54 06/30/24 10:54
I&O
06/29/24 06/30/24 07/01/24
06:59 06:59 06:59
Intake Total 1030 / 1030 940 / 940
Output Total 1100 / 1100 1450 / 1450
Balance -70 / -70 -510 / -510
--- NOTE | 2024-06-30 12:53 | W.DCSUMMARY ---
Discharge Summary
Discharge Data
Date of Admission: 06/28/24
Date of Discharge: 06/30/24
-
Pending Results: No
Hospital Course
84-year-old male with past medical history of atrial fibrillation, left calf hematoma, essential hypertension, hyperlipidemia, GERD, degenerative disc disease, skin cancer status post Mohs surgery came to the hospital with recurrent atrial
fibrillation with RVR. Patient was seen by cardiology and was transitioned from Tikosyn to amiodarone. Patient was also put on Cardizem drip along with his home dose Lopressor. Patient heart rate over time continue to improve and was able to be
weaned off Cardizem drip. Since patient symptoms continue to improve and his heart rate was much better, cardiology instructed patient to follow-up with them closely outpatient. Patient was then discharged home on amiodarone and was instructed to
follow-up with all his physicians outpatient.
Discharge Plan
-
Patient Disposition: Home (Routine Discharge)
Discharge Diagnosis/Procedures: Recurrent atrial fibrillation with rapid ventricular rate
Diet: Regular
Activity: As tolerated
Driving Restrictions: As prior to admission
Bathing Restrictions: None
Activity Restrictions/Additional Instructions:
Wound Care Instructions
L cheek Moh's incisional care-clean with saline, Bactroban ointment, Telfa, gauze pad, secure with soft cloth surgical tape or silicone border foam, change daily and as needed for drainage.
Follow up with your hat copyist.
Referrals:
Tessa Walker, DO [Family Provider] - in less than 1 week
Julienne Smith CRNP [Specified Professional Personl] - 07/07/24 3:40 pm (You have a follow up visit with Dr. Lacey's CLIP COATER, Julienne, at the [facility]. Please call with questions. )
Additional Discharge Medication Instructions: Will continue amiodarone 200mg twice daily until you see Julienne in the cardiology office next week. At that visit we will arrange for a cardioversion if needed and will discuss repeat ablation.
Continue metoprolol 50mg three times daily
Prescriptions:
New
mupirocin 2 % Ointment
1 applic topical DAILY Qty: 22 0RF
amiodarone 200 mg tablet
200 mg PO BID Qty: 60 0RF
Continued
furosemide 20 MG tablet
20 mg PO MOWEFR
metoprolol tartrate 50 MG tablet
50 mg PO TID
capsaicin 0.025 % cream
1 applic topical MOWEFR
Rx Instructions:
left leg, back
aspirin 81 mg Tablet,Delayed Release (Dr/Ec)
81 mg PO DAILY
ascorbic acid (vitamin C) [Vitamin C] 500 mg Tablet
500 mg PO DAILY
omega 0-flm-xos-fish oil [Fish Oil] 60-90-500 mg Capsule
1 cap PO DAILY
Discontinued
dofetilide 250 MCG capsule
250 mcg PO BID
Discharge Orders:
Discharge Patient (As Directed); Ordered 06/30/24
Ordered By: Tyelr Craig
Discharge Date and Time
Discharge Date/Time: 06/30/24 14:15
Print Language: FRENCH
== END 2024-06-30 14:15 | disposition home or self-care (01) | DRG 310 ==
LOC: 3 WEST ACU 14:09
PROVIDERS: Student in an Organized Health Care Education/Training Program; ADMITTING PHYSICIAN Hospitalist; ATTENDING PHYSICIAN Internal Medicine; CONSULT PHYSICIAN Internal Medicine Cardiovascular Disease; EMERGENCY PHYSICIAN Emergency Medicine; FAMILY PHYSICIAN Family Medicine
DX: I48.0 Paroxysmal atrial fibrillation (principal); I48.92 Unspecified atrial flutter; I10 Essential (primary) hypertension; I47.29 Other ventricular tachycardia; E78.5 Hyperlipidemia, unspecified; Z79.01 Long term (current) use of anticoagulants; Z79.02 Long term (current) use of antithrombotics/antiplatelets; Z79.82 Long term (current) use of aspirin
CPT/HCPCS: 80048; 80053; 85025; 93005; 96365; 96366; 99285

== ENCOUNTER 2024-07-21 07:35 | Day surgery (SDC) | payer MEDICARE, BC, SELFPAY ==
--- NOTE | 2024-07-21 10:52 | ITS.CL.CARDI ---
Echo Tech - Cardioversion
Cardioversion
Procedure Report:
Date of Procedure: July 21 2024
Procedure: Cardioversion
Indication: Symptomatic atrial fibrillation
Performing Physician: Kaleb Tanner DO, FACC
Technique: The patient was brought to the holding area. Signed informed consent was obtained. A time out was called and performed. The patient was anesthetized by the anesthesia service. Anticoagulation status was reviewed and appropriate. R2 pads
were placed anteriorly and posteriorly. Following successful PEPE, a 200 J synchronized biphasic shock restored normal sinus rhythm without significant bradycardia. There were no complications.
Conclusion: Uncomplicated cardioversion from atrial fibrillation to sinus rhythm.
Recommendation: Routine post cardioversion care. Reviewed with EP. Continue fci aspirin. Discussed with his who understands recommendations.
== END 2024-07-21 11:29 | disposition home or self-care (01) ==
LOC: CATH 07:35
PROVIDERS: ATTENDING PHYSICIAN Nuclear Medicine Nuclear Cardiology; FAMILY PHYSICIAN Family Medicine; OTHER PHYSICIAN Internal Medicine Cardiovascular Disease
DX: I48.0 Paroxysmal atrial fibrillation (principal); I08.1 Rheumatic disorders of both mitral and tricuspid valves; I10 Essential (primary) hypertension; E78.5 Hyperlipidemia, unspecified; K21.9 Gastro-esophageal reflux disease without esophagitis; Z95.818 Presence of other cardiac implants and grafts; Z87.891 Personal history of nicotine dependence; Z85.828 Personal history of other malignant neoplasm of skin; Z79.82 Long term (current) use of aspirin
CPT/HCPCS: 93312; 93320; 93325; 92960; 93005

== ENCOUNTER → 2024-10-12 09:48 | Outpatient (REF) | payer MEDICARE, BC, SELFPAY ==
[2024-10-12 10:38] LABS: % Basophils 0.6 % (0-2); % Eosinophils 1.2 % (0-6); % Immature Granulocytes 0.4 % (0-0.5); % Lymphocytes 20.3 % (20.5-51.1); % Neutrophils 69.5 % (42.2-75.2); Absolute Basophils 0.1 10^3/uL (0-0.2); Absolute Eosinophils 0.1 10^3/uL (0-0.7); Absolute Lymphocytes 1.6 10^3/uL (1.2-3.4); Absolute Monocytes 0.6 10^3/uL (0.1-0.6); Absolute Neutrophils 5.4 10^3/uL (1.4-6.5); Hematocrit 48.2 % (39.0-52.0); Hemoglobin 16.1 g/dL (13.0-18.0); Mean Corp Hgb Conc. 33.4 g/dL (33.0-37.0); Mean Corpuscular Hgb 33.1 pg (27.0-31.0); Mean Corpuscular Volume 99.2 fL (80.0-94.0); Mean Platelet Volume 10.3 fL (7.4-10.4); Nucleated Red Blood Cells % 0 % (-); Platelet Count 223 10^3/uL (130-400); Red Blood Cell Count 4.86 10^6/uL (4.70-6.10); Red Cell Dist. Width 14.3 % (11.5-14.5); White Blood Cell Count 7.7 10^3/uL (4.8-10.8)
[2024-10-12 10:52] LABS: INR 0.95; PT 13.2 Sec (11.4-14.6)
[2024-10-12 11:11] LABS: ALT (SGPT) 20 U/L (0-50); AST (SGOT) 20 U/L (17-59); Albumin 4.2 g/dl (3.5-5.0); Alkaline Phosphatase 46 U/L (38-126); Blood Urea Nitrogen 20 mg/dl (9-20); Calcium 9.3 mg/dl (8.4-10.2); Carbon Dioxide 31 mmol/L (22-30); Chloride 105 mmol/L (98-107); Glucose 97 mg/dl (70-99); Magnesium 2.2 mg/dl (1.6-2.3); Potassium 5.1 mmol/L (3.5-5.1); Sodium 141 mmol/L (135-145); Total Bilirubin 0.7 mg/dl (0.2-1.3); Total Protein 7.4 g/dl (6.3-8.2); eGFR > 60.00
== END ==
LOC: SDSPAT 09:48
PROVIDERS: ATTENDING PHYSICIAN Internal Medicine Cardiovascular Disease; FAMILY PHYSICIAN Family Medicine
DX: I48.0 Paroxysmal atrial fibrillation (principal)
CPT/HCPCS: 36415; 80053; 83735; 85025; 85610; 86850; 86900; 86901; 93005

== ENCOUNTER 2024-10-20 08:21 | Day surgery (SDC) | payer MEDICARE, BC, SELFPAY ==
[2024-10-12 10:02] VITALS: BMI 33.2
[2024-10-20] VITALS (11 sets, daily range): BP systolic 87–140; BP diastolic 53–103
[2024-10-20 11:00] LABS: ACT-LR - POC 284 Seconds (116-155)
[2024-10-20 11:20] LABS: ACT-LR - POC 287 Seconds (116-155)
--- NOTE | 2024-10-20 11:50 | ITS.CL.ABL ---
[employer] Writer - Ablation
Ablation
Procedure Report:
ELECTROPHYSIOLOGY ABLATION STUDY
DATE:: October 20, 2024�����������������������������REFERRING: Dr. Alexey Mayberry
INDICATION: Persistent supraventricular tachycardia in the form of atypical atrial flutter
HISTORY: See H and P.��As above
ANTIARRHYTHMIC DRUG: Amiodarone
PRE-PROCEDURE PEPE: No intracardiac thrombus on intracardiac ultrasound
PRESENTING RHYTHM: Left atrial posterior wall flutter with a passive limb of counterclockwise mitral flutter which was 20 to 30 ms long on post pacing interval initially
'TIME-OUT':��called and confirmed.
SEDATION/ANESTHESIA:��provided via the anesthesia department using general anesthesia (LMA).
INTRAVENOUS/ARTERIAL ACCESS:
Right femoral venous - 10 Fr
Left femoral venous - 8 Fr, 6 Fr
Ultrasound guidance for bilateral femoral vein access was utilized by me to obtain access with demonstration of normal anatomy
CHADS-VASC Score:
HAS-Bled Score
PROCEDURE:
1.��A decapolar CS catheter was placed within the CS for mapping and pacing.��This was also used as the reference catheter for the 3-D map. Entrainment from the right atrium demonstrated a post pacing interval of 234 ms indicating the right atrium
out of the circuit. Coronary sinus was eccentric and activation. We performed transseptal puncture as below and performed activation mapping of the left atrium with the entire cycle length within the left atrium. The left atrial posterior wall
roof and ligament of Prince were in the circuit with PPI equal to tachycardia cycle length and a passive limb of counterclockwise mitral flutter was 20 to 30 ms long and post pacing interval initially. Interestingly with ablation in the posterior
wall the tachycardia immediately transition to counterclockwise mitral flutter which then demonstrated PPI equal to tachycardia cycle length within the mitral isthmus circuit. Further ablation from the left inferior pulmonary vein down to the
mitral annulus in its lateral aspect slowed and then terminated tachycardia to sinus rhythm. We gave 100 mcg of nitroglycerin prior to ablation of the isthmus. Radiofrequency was utilized at the mitral isthmus proper with PFA from the mid mitral
isthmus back to the left inferior pulmonary vein. We also ablated on the appendage side of the left atrial appendage and could directly visualize the Watchman device and stayed away from immediate contact.
2. The intracardiac ultrasound catheter was positioned in the RA to identify the FO for targeting of transseptal puncture, assist��in identification of the pulmonary vein ostia, monitoring pre and post ablation pulmonary vein flow velocities,
monitoring for 'bubble' formation during RF application as a sign of thermal injury,��and to monitor for pericardial effusion during mapping and ablation procedure.���Left atrial size, LV ejection fraction, and pulmonary vein flows were monitored
pre and post ablation procedure. The other valves were inspected and found to be free of significant regurgitation or stenosis.
3.��Half of the calculated heparin bolus was administered prior to the first transeptal puncture.��Transseptal puncture was performed to diagnose RA and LA pressure so that safety of LA mapping and ablation could be further assessed, and to access
the left atrium and pulmonary veins for mapping and ablation.��This entailed advancing an 10 Syriac steerable sheath with dilator into the superior vena cava and withdrawing both (monitoring intracardiac ultrasound, fluoroscopy and tip pressure)
with the tip oriented toward the atrial septum.��The fossa ovalis was engaged (indicated by sudden displacement of the sheath tip as well as tenting of the fossa seen on intracardiac ultrasound).��Left atrial access required a pass with the
Brockenbrough needle extended.��Left atrial catheter position was confirmed by pressure monitoring (RA mean pressure 8 mm Hg and LA mean presure 14 mm Hg), LA saturation (99%),��as well as fluoroscopy.��The sheath was advanced over the dilator and
positioned in the left atrium.��This procedure was repeated for the Agilis sheath.��The remainder of the calculated heparin bolus was administered and heparin was
infused to maintain ACT at 300 -350 seconds throughout the case.
4.��RA pacing was performed via the proximal decapolar poles and LA pacing was performed via the distal decapolr poles.
5. A quadrapolar catheter was first positioned at the His position for His Bundle recording which was tagged via the 3-D Brigade sytem, and then passed to the RVA for RV pacing and recording.
6. The 9 mm lattice catheter was placed in each of the LIPV, LSPV, RSPV and the RIPV.��
7.��Next, a 3-D map was created using Brigade.���A 3-D reconstructed CT image was compared to the 3-D Navex map to assist in anatomic interpretation, mapping and ablation.
8. Lesions were given to the left superior pulmonary vein along the ligament of Prince as well as the roof and the posterior wall. Entrance and exit block in sinus rhythm was confirmed in all 4 pulmonary veins. A roof floor and posterior wall
box lesion set was given and a mitral isthmus line from the left inferior pulmonary vein to the mitral annulus at 3:00. Atrial flutter was initially left atrial posterior wall atrial flutter encircling the left veins at 300 ms which immediately
transition to mitral flutter after isolation of the posterior wall. Tachycardia then slowed and terminated with completion of the mitral line with persistent bidirectional block and injury isthmus conduction time of 224 ms. Total lesions were pulm
vein isolation as above, 2 atrial flutter mechanisms, and additional modification of atrial fibrillation substrate. After removing catheters to the right atrium we then performed CS pacing and there was persistent bidirectional block across the
cavotricuspid isthmus intra isthmus conduction time to 21 ms.
9. Normal sinus node recovery time at 700 ms pacing. The patient does have prolonged AV conduction and is on amiodarone therapy which we will lower and discontinue in 1 month.
TOTAL FLOURO TIME: 12.1 minutes 123 mGy
TOTAL RF DURATION: 1 minutes
REVERSAL OF HEPARIN: 35 mg of protamine, slow IV administration
COMPLICATIONS:
None
Intracardiac US shows no pericardial effusion post ablation.
SUMMARY:��
Complex left atrial mapping and ablation.
Reisolation of left superior pulmonary vein, roof posterior wall and floor lines in the left atrium with continuation of tachycardia. Atrial flutter mechanism 1 left atrial posterior wall flutter, atrial flutter mechanism 2 mitral isthmus dependent
flutter.
RECOMMENDATIONS:
1. Ambulate in 4 hours
2. Resume anticoagulation
3.��Lower amiodarone to 200 mg daily then discontinue in 1 month
4.��Consider same-day discharge
Copy to: Dr. Alexey Mayberry
--- NOTE | 2024-10-20 16:39 | W.PN.UPDATE ---
Update Note
Progress Note Update
84 yo WM s/p PVI (same day). He denies cp, sob, da diet, voiding, amb w/o dizziness, EKG SB 1deg AVB, b/l groin c/d/i no HT, soft. He will resume Eliqius tonight. He will decrease amiodarone to 200mg daily for 1 month then stop. He will continue
metoprolol. Activity restrictions reviewed. He will f/u Dr. Lacey in 3 mo. He is for d/c home after 430p.
== END 2024-10-20 16:27 | disposition home or self-care (01) ==
LOC: CATH 08:21
PROVIDERS: ATTENDING PHYSICIAN Internal Medicine Cardiovascular Disease; FAMILY PHYSICIAN Family Medicine
DX: I48.0 Paroxysmal atrial fibrillation (principal); E78.5 Hyperlipidemia, unspecified; I10 Essential (primary) hypertension; I25.10 Atherosclerotic heart disease of native coronary artery without angina pectoris; I47.10 Supraventricular tachycardia, unspecified; I48.4 Atypical atrial flutter; K76.0 Fatty (change of) liver, not elsewhere classified; M19.90 Unspecified osteoarthritis, unspecified site; Z79.01 Long term (current) use of anticoagulants; I49.5 Sick sinus syndrome; Z95.818 Presence of other cardiac implants and grafts; K21.9 Gastro-esophageal reflux disease without esophagitis; Z87.891 Personal history of nicotine dependence; Z79.82 Long term (current) use of aspirin; E66.9 Obesity, unspecified; Z79.899 Other long term (current) drug therapy; Z68.33 Body mass index [BMI] 33.0-33.9, adult
CPT/HCPCS: C1733; C1894; C1730; C1769; C1766; C1892; C1759; 85347; 93005; 93655; 93656; 93657

== ENCOUNTER 2025-03-22 09:47 | Day surgery (SDC) | payer MEDICARE, BC, SELFPAY ==
--- NOTE | 2025-03-22 12:11 | ITS.CL.CARDI ---
[facility] - Cardioversion
Cardioversion
Procedure Report:
Procedure: Direct current electrical cardioversion
Pre-operative diagnosis: Persistent atrial fibrillation
Post-operative diagnosis: Persistent atrial fibrillation status post DC cardioversion to sinus rhythm
Anesthesia: MAC
Attending Physician: Sean Ceballos MD
Procedure Description: The patient was brought to the electrophysiology laboratory in the fasting state. Adherence to anticoagulation regimen was confirmed. Informed consent was obtained from the patient prior to the start of the procedure.
Electrodes were placed on the patient and connected to an external defibrillator. Monitoring of blood pressure, ECG tracings, and pulse oximetry was initiated. The pads were applied to the patient in the anterior and posterior positions. The patient
was sedated by the anesthesiologist. A 200 joule biphasic synchronized shock was delivered to the patient under MAC anesthesia. Sinus rhythm was successfully restored. The patient recovered uneventfully from MAC anesthesia. There were no immediate
post-procedure complications. The patient left the lab in good condition. The attending physician was present throughout the entire procedure.
Impression: Successful direct current cardioversion with jewish of sinus rhythm after one 200 joule biphasic synchronized shock.
== END 2025-03-22 12:52 | disposition home or self-care (01) ==
LOC: CATH 09:47
PROVIDERS: ATTENDING PHYSICIAN Internal Medicine Cardiovascular Disease; FAMILY PHYSICIAN Family Medicine; OTHER PHYSICIAN Internal Medicine Cardiovascular Disease
DX: I48.19 Other persistent atrial fibrillation (principal); I44.0 Atrioventricular block, first degree; I10 Essential (primary) hypertension; Z95.818 Presence of other cardiac implants and grafts; Z79.01 Long term (current) use of anticoagulants; Z79.899 Other long term (current) drug therapy
CPT/HCPCS: 92960; 93005